=== PATIENT | male | born 1990 | race Caucasian/White ===

== ENCOUNTER 2019-08-19 21:02 | Emergency (ER) | payer SELFPAY ==
[~2019-08-19] VITALS: Ht 177.8 cm; Wt 55.2 kg
[~2019-08-19 21:02] MED LIST: ALPR0.5T7 PO; HYDR-3240 PO; TRAM50TA2 PO
[2019-08-19 21:04] VITALS: BP 134/82
[2019-08-19] MEDS ORDERED: IBUPROFEN 600 MG TABLET ONE (21:48)
--- NOTE | 2019-08-19 21:50 | NUR ---
PATIENT STATES "I'M GONNA LEAVE THIS FUCKING PLACE, YOU WON'T GIVE ME ANYTHING FOR PAIN. I KNOW WHAT'S WRONG, I MIGHT WELL GO HOME AND FUCKING SELF MEDICATE. I'M READY TO LEAVE RIGHT NOW AND GET THE FUCK OUT OF HERE. I'M A REALLY STRONG DUDE I CAN HANDLE THE PAIN, AND THIS IS FUCKING KILLING ME." PATIENT EDUCATED THAT WE NEED TO WAIT TO GET RESULTS BACK FROM RADIOLOGIST, SPLIT AND GET CRUTCHES. MD NOTIFIED ABOUT PAIN.
[2019-08-19] MEDS ORDERED: IBUPROFEN 600 MG TABLET PO ONE (22:00)
[2019-08-19] MEDS ORDERED: OXYcodone/APAP 7.5/325MG TABLET ONE (22:05)
--- NOTE | 2019-08-19 22:07 | NUR ---
PATIENT MEDICATED PER EMAR, TOELRATED WELL. PATIENT CALM AND COOPERATIVE AT THIS TIME.
[2019-08-19] MEDS ORDERED: OXYcodone/APAP 7.5/325MG TABLET PO ONE (22:30)
--- NOTE | 2019-08-19 22:48 | NUR ---
KINGSLEY, CLASSIFIED ADVERTISING CLERK TO ROOM TO SPLINT AND GET CRUTCHES, STATES "THE PATIENT WAS REALLY RUDE TO ME, SAID I WAS DOING IT WRONG, AND CURSING AT ME". SPLINT PLACED PROPERLY AND FITS WELL. SECONDARY TECH IN ROOM TO GET CRUTCHES.
--- NOTE | 2019-08-19 22:50 | NUR ---
PATIENT GIVEN DISCHARGE PAPERWORK, INSTRUCTIONS, AND PRESCRIPTION. PATIENT CALM AND COOPERATIVE AT THIS TIME. PATIENT AMBULATORY WITH CRUTCHES WELL TO DISCHARGE ACCOMPANIED BY SIGNIFICANT OTHER.
--- NOTE | 2019-08-19 22:52 | NUR ---
PT. WAS DISCHARGED FROM [facility] AND IS IN THE LOBBY SCREAMING HE WOULD LIKE TO SPEAK TO A AUTOMOTIVE PRODUCT SPECIALIST. BRIDGET ALEGRE WENT TO THE LOBBY TO ADDRESS THE PT'S CONCERNS. PT. IS STATING HE WANTS THE "AUTOMOTIVE PRODUCT SPECIALIST OF THE AUTOMOTIVE PRODUCT SPECIALIST'S NUMBER". RN EXPLAINED TO THE PT. SHE WOULD BE HAPPY TO GIVE HIM THE PHONE NUMBER BUT WOULD LIKE TO ADDRESS HIS CONCERNS. THE PT. STATED HE THOUGHT HIS SPLINT LOOKED LIKE "SHIT". PT. HAS A SPLINT IN PLACE WITH CMS CHECKS INTACT. RN OFFERED TO HAVE THE PT. TO RETURN TO [facility] TO HAVE HIS SPLINT RE-DONE. PT. DECLINED AND STATED HE HAD PAIN. RN EXPLAINED TO HIM THAT WE COULD TAKE HIM BACK TO THE ROOM AND ADDRESS ANY PAIN THAT HE HAS. PT. STATED THAT THEY GAVE HIM PAIN MEDS. PT. IS STATING THE STAFFING SUCKS AND I'M NOT GOING TO STAY HERE AND TALK TO YOU. PT. DOES HAVE ETOH ODOR ON HIS BREATH. PT.'S S/O APPROACHED THE RN AND STATED,"I TOLD YOU [facility]'S SUCKS AND WE SHOULD NOT COME HERE. FUCK THIS PLACE." PT. STATES "I DON'T WANT ANYTHING FROM YOU FUCK THIS PLACE." I AM NOTIFYING THE AUTOMOTIVE PRODUCT SPECIALIST. RN ATTEMPTED AGAIN TO HELP THE PT. AND HE LEFT THE LOBBY WITH A STEADY GAIT USING HIS CRUTCHES.
--- NOTE | 2019-08-19 23:04 | NUR ---
PT. WAS SCREAMING PROFANITIES UPON HIS DEPARTURE AND STATED HIS MOTHER IS A NURSE.
== END 2019-08-19 22:30 | disposition home or self-care (01) ==
LOC: ED 22:00
DX: S92.354A Nondisplaced fracture of fifth metatarsal bone, right foot, initial encounter for closed fracture (principal); F17.210 Nicotine dependence, cigarettes, uncomplicated; X50.1XXA Overexertion from prolonged static or awkward postures, initial encounter; Y93.89 Activity, other specified; Y92.410 Unspecified street and highway as the place of occurrence of the external cause; Y99.8 Other external cause status
CPT/HCPCS: 29515; 99283

== ENCOUNTER 2020-02-02 20:27 | Emergency (ER) | payer SELFPAY ==
[~2020-02-02] VITALS: Ht 175.3 cm; Wt 70.0 kg
--- NOTE | 2020-02-02 20:42 | NUR ---
PT BIB [facility] FOR MEDICAL CLEARENCE IN HAND CUFFS HE THREW HIMSELF ON CONCRET FLOOR AT [facility] HAS BUMP TO MIDDLE OF FOREHEAD WITH BREAK IN SKIN, PT BLEW 0.29 FOR [facility] PT YELLING AT STAFF IN NAD
--- NOTE | 2020-02-02 21:19 | NUR ---
MD IN TO SEE PT, TO OBSERVE TILL 2214, PT INTERACTING WITH SO'S
[2020-02-02] MEDS ORDERED: LORazepam 1MG TABLET ONE (21:41)
[2020-02-02] MEDS ORDERED: NEOSPORIN OINT. PKT 1 PACKET ONE (21:54)
[2020-02-02] MEDS ORDERED: LORazepam 1MG TABLET PO ONE (22:00)
--- NOTE | 2020-02-02 22:00 | NUR ---
SO DECIDED THAT THEY ARE NOT GOING TO TAKE HIM TO ASSISTED ANY MORE AND HAVE TO LEAVE PO ATIVAN GIVEN PER MD ORDER, PT YELLING
--- NOTE | 2020-02-02 22:37 | NUR ---
PT PLACED ON MONITORS, CONTINUES WITH YELLING
[2020-02-02 22:43] VITALS: BP 130/93
--- NOTE | 2020-02-02 23:20 | NUR ---
PT ASKED TO USE BATH ROOM, ESCORTED BY SECURITY PT COOPERATIVE AND DISCHARGED HOME
== END 2020-02-02 23:22 ==
LOC: ED 21:00
DX: S09.90XA Unspecified injury of head, initial encounter (principal); F10.129 Alcohol abuse with intoxication, unspecified; X58.XXXA Exposure to other specified factors, initial encounter; Y93.89 Activity, other specified; Y92.89 Other specified places as the place of occurrence of the external cause; Y99.8 Other external cause status; Y90.9 Presence of alcohol in blood, level not specified
CPT/HCPCS: 99283

== ENCOUNTER 2020-02-27 04:08 | Emergency (ER) | payer OTHER ==
[~2020-02-27] VITALS: Ht 175.3 cm; Wt 60.0 kg
--- NOTE | 2020-02-27 04:20 | NUR ---
PT BIB [facility] FROM [facility] FOR LOWER QUADRANT ABDOMINAL PAIN THAT TRAVELS DOWN INTO SCROTUM. PT APPEARS DROWSY BUT RESPONDS TO ALL QUESTIONS APPROPRIATELY, STATES HE SWALLOWED METH AND HEROIN BEFORE BEING DETAINED YESTERDAY. PT RESTING IN [facility], [facility], VSS. PT SKIN IS P/W/D. WCTM. PLACED ON SPO2/BP/ECG MONITORING.
[2020-02-27] MEDS ORDERED: ONDANSETRON 2MG/ML, 2ML ONE (04:52)
[2020-02-27] MEDS ORDERED: SODIUM CHLORIDE 0.9% 1,000ML IVBOLUS ONE (05:00)
[2020-02-27] MEDS ORDERED: ONDANSETRON 2MG/ML, 2ML IVPush ONE (05:00)
--- NOTE | 2020-02-27 05:24 | NUR ---
PT RESTING ON GURNEY, MEDICATED PER SEP, PT DECLINED ZOFRAN. NAD, VSS. NO OTHER CHANGE IN CONDITION. WCTM. WAITING FOR LAB AND RAD REPORTS.
[2020-02-27 05:34] LABS: BASOPHILS # (AUTO) 0.05 x10^3/uL (0-0.1); BASOPHILS % (AUTO) 1 % (0-1); EOSINOPHILS # (AUTO) 0.18 x10^3/uL (0-0.4); EOSINOPHILS % (AUTO) 2 % (1-7); LYMPHOCYTES # (AUTO) 3.26 x10^3/uL (1-3.4); LYMPHOCYTES % (AUTO) 34 % (22-44); MD NO; MEAN CORPUSCULAR HEMOGLOBIN 29.2 pg (27.5-34.5); MEAN CORPUSCULAR HGB CONC 32.7 g/dL (33.2-36.2); MEAN CORPUSCULAR VOLUME 89.3 fL (81-97); MEAN PLATELET VOLUME 7.4 fL (7.4-10.4); MONOCYTES # (AUTO) 0.89 x10^3/uL (0.2-0.8); MONOCYTES % (AUTO) 9 % (2-9); NEUTROPHILS # (AUTO) 5.29 x10^3/uL (1.8-6.8); NEUTROPHILS % (AUTO) 55 % (42-75); PLATELET COUNT 377 x10^3/uL (130-400); RED BLOOD COUNT 4.79 x10^6/uL (4.38-5.82); RED CELL DISTRIBUTION WIDTH 13.5 % (9.4-14.8)
[2020-02-27 05:36] LABS: ALANINE AMINOTRANSFERASE 33 U/L (12-78); ALBUMIN 3.8 g/dL (3.4-5.0); ANION GAP 6 mmol/L (5-15); CALCIUM 7.8 mg/dL (8.5-10.1); CHLORIDE 112 mmol/L (98-107); CREATININE 0.88 mg/dL (0.7-1.3)
[2020-02-27 05:39] LABS: ALKALINE PHOSPHATASE 67 U/L (45-117); BILIRUBIN,TOTAL 0.4 mg/dL (0.2-1.0)
--- NOTE | 2020-02-27 05:49 | NUR ---
PT RESTING ON IRA, WAITING ON ADDITIONAL LAB AND RAD READ, NAD, VSS, WCTM.
[2020-02-27 06:39] VITALS: BP 128/92
--- NOTE | 2020-02-27 06:52 | NUR ---
Patient/Caregiver given discharge instructions and they have confirmed that they understand the instructions. Patient ambulatory with steady gait. NAD, P/W/D. DENIES ADDITIONAL QUESTIONS OR NEEDS AT THIS TIME.
== END 2020-02-27 06:57 | disposition home or self-care (01) ==
LOC: ED 04:38
DX: R11.2 Nausea with vomiting, unspecified (principal); R10.30 Lower abdominal pain, unspecified; F17.210 Nicotine dependence, cigarettes, uncomplicated; R94.31 Abnormal electrocardiogram [ECG] [EKG]
CPT/HCPCS: 36415; 74022; 80053; 85025; 93005; 96360; 99285; J7030